=== PATIENT | male | born 1980 | race African-American/Black ===

== ENCOUNTER 2018-08-16 08:24 | Emergency (ER) | payer BC ==
--- OUTSIDE RECORDS SUMMARY | 2018-08-16 08:26 | XMS REPORT ---
:1980 Author Organization [facility] Address [address] [place] [address] Care Team Providers Name Role Phone Unavailable Unavailable Unavailable Payers Payer Name Policy Type Policy Number Effective Date Expiration Date Problems This patient has no known problems. Allergies, Adverse Reactions, Alerts Allergy Name Allergy Status Severity Reaction(s) Onset Inactive Treating Comments Type Date Date Clinician cephalexin DA Active DE 2017-10 00:00:0 0 Medications This patient has no known medications.
[2018-08-16] MEDS ORDERED: KETOROLAC 30 MG/ML INJ ONE (09:09)
--- NOTE | 2018-08-16 09:23 | RAD REPORT ---
EXAM DESCRIPTION: RAD - Lumbar Spine 3 Views - 08/16/2018 9:14 am CLINICAL HISTORY: PAIN Radiculopathy COMPARISON: No comparisons FINDINGS: Vertebral body heights appear maintained. No compression fracture noted. Disc spaces are m aintained. No spondylolysis or spondylolisthesis. IMPRESSION: Negative study.
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
== END 2018-08-16 09:46 | disposition home or self-care (01) ==
LOC: ER 08:24
DX: S20.229A Contusion of unspecified back wall of thorax, initial encounter (principal); V49.40XA Driver injured in collision with unspecified motor vehicles in traffic accident, initial encounter; M62.830 Muscle spasm of back; Z88.1 Allergy status to other antibiotic agents
CPT/HCPCS: 72100; 96372; 99284